=== PATIENT | male | born 1940 | race Caucasian/White ===

== ENCOUNTER 2017-12-06 10:27 | Outpatient (RCR) | payer MEDICARE, OTHER ==
[2017-11-29 11:19] VITALS: BP 128/80
[~2017-12-06 10:27] MED LIST: ALLO-119 PO; ALLOPURINOL PO; BUPR-124 PO; CALC600T63 PO; CIPR-214 PO; DICL500C66 PO; ENO30I SC; FAMO20TA28 PO; GLUC100026 PO; HYDR-318; IBUP800T37 PO; KRIL1CAP22 PO; LACT1CAP6 PO; LEVO-85 PO; MEPE100T3 PO; METH4TAB66 PO; MOM PO; NAPR220C12 PO; NO MEDS AT THIS TIME; OXYB-13 PO; OXYC-865 PO; PER PO; PHEN200T32 PO; PNEI IJ; PRAS1TAB4 PO; PROM12.546 PO; TAMS0.4C25 PO; VIT-7 PO; [UNRECOGNIZED DRUG - CODE] PO
== END 2017-12-13 15:15 | disposition home or self-care (01) ==
LOC: RAON 10:27
PROVIDERS: ATTEND Nurse Practitioner Family
DX: Z85.46 Personal history of malignant neoplasm of prostate (principal); Z92.3 Personal history of irradiation; Z87.891 Personal history of nicotine dependence
CPT/HCPCS: 36415; 84153; G0463; 99212

== ENCOUNTER 2018-01-31 09:25 | Outpatient (RCR) | payer MEDICARE, OTHER ==
[2018-01-31 09:28] VITALS: BP 144/66
== END 2018-02-24 10:51 | disposition home or self-care (01) ==
LOC: SPU 09:25
PROVIDERS: ATTEND Nurse Practitioner Family
DX: C61 Malignant neoplasm of prostate (principal)
CPT/HCPCS: 36415; 84153

== ENCOUNTER 2018-02-07 14:53 | Outpatient (RCR) | payer MEDICARE, OTHER | END 2018-02-24 09:27 | disposition home or self-care (01) | LOC: RAON 14:53 | PROVIDERS: ATTEND Radiology Radiation Oncology | DX: C61 Malignant neoplasm of prostate (principal); Z92.3 Personal history of irradiation; Z79.899 Other long term (current) drug therapy; Z87.891 Personal history of nicotine dependence | CPT/HCPCS: 99213 ==

== ENCOUNTER → 2018-03-15 | Outpatient (CLI) | payer MEDICARE, OTHER | LOC: LAB 09:47 | DX: R31.1 Benign essential microscopic hematuria (principal) | CPT/HCPCS: 99001 ==

== ENCOUNTER → 2018-03-16 | Outpatient (CLI) | payer MEDICARE, OTHER ==
[2018-03-16 16:19] LABS: PLATELET COUNT, AUTOMATED 187 K/uL (150-450)
== END ==
LOC: LAB 15:12
PROVIDERS: ATTEND Nurse Practitioner Family
DX: M10.9 Gout, unspecified (principal); Z79.899 Other long term (current) drug therapy
CPT/HCPCS: 36415; 82040; 82247; 82310; 82374; 82435; 82565; 82947; 84075; 84132; 84155; 84295; 84450; 84460; 84520; 84550; 85025

== ENCOUNTER → 2018-04-28 | Outpatient (REF) | payer MEDICARE, OTHER | LOC: ZZSENDIN 14:34 | PROVIDERS: ATTEND Urology | DX: C61 Malignant neoplasm of prostate (principal); R35.0 Frequency of micturition; R31.0 Gross hematuria; R82.79 Other abnormal findings on microbiological examination of urine | CPT/HCPCS: 87088 ==

== ENCOUNTER → 2018-05-04 | Outpatient (CLI) | payer MEDICARE, OTHER | LOC: LAB 10:06 | PROVIDERS: ATTEND Nurse Practitioner Family | DX: Z51.81 Encounter for therapeutic drug level monitoring (principal); Z79.899 Other long term (current) drug therapy; M10.9 Gout, unspecified | CPT/HCPCS: 36415; 82040; 82247; 82310; 82374; 82435; 82565; 82947; 84075; 84132; 84155; 84295; 84450; 84460; 84520; 84550 ==

== ENCOUNTER → 2018-05-24 | Outpatient (CLI) | payer MEDICARE, OTHER | LOC: LAB 10:56 | PROVIDERS: ATTEND Urology | DX: C61 Malignant neoplasm of prostate (principal) | CPT/HCPCS: 36415; 84153 ==

== ENCOUNTER → 2019-03-16 | Outpatient (CLI) | payer MEDICARE, OTHER ==
[2019-03-16 11:00] LABS: PLATELET COUNT, AUTOMATED 170 K/uL (150-450)
[2019-03-16 11:12] LABS: LDL CHOLESTEROL 101 mg/dl
== END ==
LOC: LAB 10:28
PROVIDERS: ATTEND Nurse Practitioner Family
DX: Z79.899 Other long term (current) drug therapy (principal); M10.9 Gout, unspecified
CPT/HCPCS: 36415; 82040; 82247; 82310; 82374; 82435; 82465; 82565; 82947; 83718; 84075; 84132; 84155; 84295; 84443; 84450; 84460; 84478; 84520; 84550; 85025

== ENCOUNTER → 2019-04-16 | Outpatient (CLI) | payer MEDICARE, OTHER ==
[~2019-04-16] MED LIST changes: +VARI50KI IM
--- NOTE | 2019-04-16 12:49 | EKG ---
FACILITY: [facility] PATIENT NAME: RICHARD PARK : [id number] MR: [id number] V: [id number] EXAM DATE: ORDERING PHYSICIAN: DENICE VANCE TECHNOLOGIST: SHANNON Test Reason : PREOP-R ANKLE Blood Pressure : / mmHG Vent. Rate : 056 BPM Atrial Rate : 056 BPM P-R Int : 170 ms QRS Dur : 090 ms QT Int : 414 ms P-R-T Axes : 074 068 059 degrees QTc Int : 399 ms Sinus bradycardia Nonspecific ST findings Abnormal ECG Fairly similar to previous EKG Confirmed by JOSAFAT BRUCE ([id number]) on 04/16/2019 4:19:32 PM Referred By: PINKY Confirmed By:JOSAFAT BRUCE
== END ==
LOC: RESP 12:31
PROVIDERS: ATTEND Anesthesiology
DX: Z01.810 Encounter for preprocedural cardiovascular examination (principal); S86.011A Strain of right Achilles tendon, initial encounter; S82.61XA Displaced fracture of lateral malleolus of right fibula, initial encounter for closed fracture; R94.31 Abnormal electrocardiogram [ECG] [EKG]
CPT/HCPCS: 93005

== ENCOUNTER 2019-04-18 20:54 | Emergency (ER) | payer MEDICARE, OTHER ==
--- NOTE | 2019-04-18 21:49 | ER Report ---
History and Physical Time Seen By MD: 21:48 Hx. of Stated Complaint: PATIENT REPORTS PAIN AND DISCOMFORT IN RIGHT CALF FOLLOWING ANKLE SURGERY YESTERDAY HPI/ROS CHIEF COMPLAINT: pain in right lower extremity after surgery HISTORY OF PRESENT ILLNESS: This is an 79 year old male. He had surgery yesterday for tibia fracture and ruptured achilles byt Dr. Ruelas at [facility]. Today having a burning sensation behind the knee and upper part of lower leg and into thigh area. No pain in the ankle where the surgery was. No shortness of breath. No anticoagulation. Concern for possible blood clots. His son who is a pharmacist was concerned that he is not on any prophylactic ant icoagulation. No fevers or chills. No numbness in the leg. Allergies: Coded Allergies: hydrocodone (Unverified Adverse Reaction, Intermediate, VERY BAD DREAMS, 04/18/19) Home Meds Active Scripts Allopurinol (ZYLOPRIM) 300 Mg Tablet, 0.5 TAB PO DAILY, #45 TAB 3 Refills Prov:RO MILLER APRN PICKER / PACKER-C 07/31/18 Reported Medications Lactobacillus Combination No.4 (PROBIOTIC) 1 Each Capsule, 1 EACH PO DAILY, CAPSULE 09/05/17 Calcium Carbonate (CALCIUM) 600 Mg Tablet, 600 MG PO DAILY 09/05/17 Glucosamine Sulfate 2KCL (GLUCOSAMINE) 1,000 Mg Tablet, 1 TAB PO DAILY 10/02/15 Discontinued Scripts Varicella-Zoster Ge/As01b/Pf (Shingrix Vial Kit) 50 Mcg/0.5 Ml Kit, 0.5 ML IM ONCE, #1 KIT 0 Refills Prov:RO MILLER APRN PICKER / PACKER-C 04/09/19 Reviewed Nurses Notes: Yes Hx Smoking: No Smoking Status: Never Smoker Hx Substance Use Disorder: No Hx Alcohol Use: No Constitutional Vital Sign - Last 24 Hours 04/18/19 04/18/19 04/18/19 04/18/19 20:54 21:02 21:05 21:15 Temp 98.0 Pulse ??? 56 Resp 17 B/P (MAP) 130/79 (96) 130/79 123/88 (100) Pulse Ox 93 O2 Delivery Room Air 04/18/19 04/18/19 04/18/19 04/18/19 21:24 21:30 21:45 21:54 Pulse 56 55 B/P (MAP) 115/59 (77) 113/58 (76) Pulse Ox 93 95 04/18/19 04/18/19 04/18/19 04/18/19 22:00 22:15 22:20 22:30 Pulse 58 B/P (MAP) 139/75 (96) 115/62 (79) 120/64 (82) Pulse Ox 93 04/18/19 04/18/19 04/18/19 04/18/19 22:45 22:50 23:00 23:15 Pulse 54 B/P (MAP) 122/59 (80) 108/61 (77) 109/59 (76) Pulse Ox 94 04/18/19 04/18/19 04/18/19 04/18/19 23:20 23:30 23:45 23:50 Pulse 50 49 B/P (MAP) 109/67 (81) 112/64 (80) Pulse Ox 90 93 04/19/19 04/19/19 04/19/19 04/19/19 00:00 00:05 00:15 00:30 Pulse 55 B/P (MAP) 127/60 (82) 113/60 (77) 111/67 (82) Pulse Ox 88 04/19/19 00:35 Pulse 50 Pulse Ox 92 Physical Exam General: Alert, no acute distress. Respiratory: Breathing easily. Cardiovascular: Regular rate and rhythm. Normal peripheral perfusion. Skin: Splint and bandages removed. Has no signs of infection. Incisions looking good. Post-operative changes. Musculoskeletal: operation as noted, some pain with palpation behind the knee and into thigh. No palpable chords in calf. Medical Decision Making EKG/Imaging Imaging Duplex Doppler ultrasound of the right lower extremity: Indication: Pain. Technique: Compression ultrasound with duplex Doppler imaging was performed. Comparison: None available. Findings: There is normal compression of the right common femoral, superficial femoral, popliteal, anterior tibial, peroneal, posterior tibial, and proximal saphenous veins. There is no evidence of echogenic thrombus. The Doppler patterns of resting flow and augmentation are within normal limits. There is no mass or fluid collection. IMPRESSION: No evidence of deep vein thrombosis in the right lower extremity. Report Dictated By: Frederick Gordon MD at 04/18/2019 11:16 PM ED Course/Re-evaluation ED Course Negative ultrasound for DVT. Discussed with the patient and his , current evidence is lacking in orthopedic surgery below the knee and no recommendation for most of these, however, if anticoagulation is to be used, it will be used in cases of prolonged immobility and achilles ruptures in a case by case basis after weighing the risks and benefits of the treatment. The patient has no history of intracranial bleeds, no gastrointestinal bleeding, but does have history of some urinary bleeding. Discussed giving a dose of Lovenox until he can discuss further with Dr. Ruelas, but he would like to wait until he is able to discuss with Dr. Ruelas. Re-bandaged the leg with Adaptic over the incision and blister area, then non-s tick gauze above this, then cast padding wrap and Curlex over this for further padding, then a new orthoglass posterior and stirrup with RAYMOND wrap to secure. Patient tolerated well. Decision to Disposition Date: Apr 19, 2019 Decision to Disposition Time: 00:26 Depart Departure Latest Vital Signs Vital Signs Date Time Temp Pulse Resp B/P (MAP) Pulse Ox O2 Delivery O2 Flow Rate FiO2 04/19/19 00:35 50 92 04/19/19 00:30 111/67 (82) 04/18/19 21:05 98.0 17 Room Air Impression: Primary Impression: Leg pain, right Condition: Improved Disposition: HOME OR SELF-CARE Referrals: RO MILLER APRN PICKER / PACKER-C (PCP) Patient Instructions: Leg Pain (ED) Additional Instructions: The leg pain you are having is likely irritation and inflammation from the surgery. No blood clots were seen on your ultrasound tonight. Call Dr. Ruelas's office tomorrow and let them know you were here today. You can address the question of anticoagulation to prevent blood clots with Dr. Ruelas. TELLO MACHADO MD Apr 18, 2019 21:49
--- NOTE | 2019-04-18 23:23 | RADIOLOGY IMAGING REPORT ---
[place] [facility] [place] Abhinav Lenz : 1940 MR: [id number] V: [id number] EXAM DATE: ORDERING PHYSICIAN: TELLO MACHADO TECHNOLOGIST: Location: [facility] [place] Patient: Abhinav Lenz : 1940 Visit/Account:[id number] Date of Sevice: 04/18/2019 Duplex Doppler ultrasound of the right lower extremity: Indication: Pain. Technique: Compression ultrasound with duplex Doppler imaging was performed. Comparison: None available. Findings: There is normal compression of the right common femoral, superficial femoral, popliteal, an terior tibial, peroneal, posterior tibial, and proximal saphenous veins. There is no evidence of echo genic thrombus. The Doppler patterns of resting flow and augmentation are within normal limits. There is no mass or fluid collection. IMPRESSION: No evidence of deep vein thrombosis in the right lower extremity. Report Dictated By: Frederick Gordon MD at 04/18/2019 11:16 PM Report E-Signed By: Frederick Gordon MD at 04/18/2019 11:18 PM WSN:[id number]
[2019-04-19 00:30] VITALS: BP 111/67
== END 2019-04-19 00:54 | disposition home or self-care (01) ==
LOC: ER 22:01
DX: M79.661 Pain in right lower leg (principal)
CPT/HCPCS: 99284